=== PATIENT | female | born 1995 | race African-American/Black ===

== ENCOUNTER 2023-10-27 15:48 | Emergency (ER) | payer OTHER, SELFPAY ==
[2023-10-27 16:04] VITALS: BP 128/68; PULSE 80; RESP 16; TEMP 36.5; O2SAT 100
[2023-10-27 16:38] VITALS: PULSE 72; RESP 16; O2SAT 99
--- NOTE | 2023-10-27 16:38 | PC.NURSE ---
PT'S GRANDMOTHER CALLED STATING THAT SHE IS ON HER WAY TO GET PT AND THAT SHE IS LEAVING. WENT IN TO DISCUSS W PT AND SHE STATES HER RIDE IS HERE AND THAT SHE DID NOT WANT TO WAIT FOR PROVIDER OR AMA PAPERWORK. PT STATES SHE IS GOING TO [facility] ED.
--- NOTE | 2023-10-27 16:51 | ED.CHESTPAIN ---
HPI - Chest Pain General Chief Complaint: Chest Pain Stated Complaint: chest pain,tingling left hand,MARK Source: patient Mode of arrival: ambulatory Limitations: no limitations History of Present Illness HPI narrative: Patient presents for evaluation of chest pain that started at 1:00 p.m. today. She indicates she has had similar symptoms in the past for which she was seen at [facility]. She states that she was told that her symptoms were related distress. She reports an increase of stress as of late as result of health issues of a few family members as well as a few deaths in her family. She states pain is in the sternal region, described as tightness and rated 7/10 in severity. pain is intermittent but she cannot provide me with frequency with which she experiences the symptoms, duration of time in which she is symptomatic, aggravating or alleviating qualities. She had some SOB at the time of her chest pain onset, but that has resolved. She denies cough or leg swelling. She smokes marijuana but denies cigarette use. No leg swelling. No personal or family hx of DVT/PE. She is not on any estrogen-continaing products. Related Data Home Medications Medication Instructions Recorded Confirmed ferrous sulfate 325 mg (65 mg 325 mg PO DAILY 10/27/23 10/27/23 iron) tablet Allergies Allergy/AdvReac Type Severity Reaction Status Date / Time amoxicillin Allergy Rash Verified 10/27/23 16:07 Review of Systems Review of Systems: CONSTITUTIONAL: Denies fever, chills, or sweats. EYES: Denies visual changes, redness, or discharge. ENT: Denies rhinorrhea, congestion, sore throat, or otalgia. CARDIOVASCULAR: Reports intermittent chest pain today, none currently. Denies palpitations, or edema. RESPIRATORY: Reports shortness of breath earlier, now resolved. Denies cough GASTROINTESTINAL: Denies abdominal pain, nausea, vomiting, or diarrhea. GENITOURINARY: Denies dysuria or hematuria. SKIN: Denies rash or itching. MUSCULOSKELETAL: Denies back pain, joint pain, or myalgia. NEUROLOGIC: Denies headache, numbness, dizziness, or weakness. PSYCHIATRIC: Reports stress and anxiety. Denies depression, SI, HI. [facility] Past Medical History Medical History No pertinent past medical history Surgical History Surgical History No pertinent past surgical history Family History Family History Mother Family history non-contributory Social History Social History Smoking status: Never smoker Substance use: current Substance use type: marijuana Living arrangements: with family Additional living arrangements comments: lives with her daughter Gender identity (if verbalized by the patient): Female Sexual Orientation (if Verbalized by the Patient): Straight or Heterosexual Spiritual care concerns: No Exam Narrative: GENERAL: Well-appearing, well-nourished, and in no acute distress. HEAD: Normocephalic, atraumatic. EYES: PERRLA and EOMI. ENT: Nares clear, no rhinorrhea or epistaxis. Mucous membranes moist. Oropharynx without tonsillar hypertrophy exudate or other lesions. Bilateral TMs pearly valencia nonbulging NECK: Supple. No adenopathy or masses. No carotid bruits or JVD CHEST: Clear to auscultation. No respiratory distress. No wheezes rales or rhonchi HEART: Regular rate and rhythm. No murmur heard. Normal peripheral pulses. ABDOMEN: Soft, nontender, nondistended, normal active bowel sounds. EXTREMITIES: Normal range of motion. No edema. SKIN: Warm, dry, no rash. NEURO: No focal deficits. Alert and oriented x3. PSYCH: Normal mood and affect. Course Course Emergency Course: This is a 28-year-old female who presented for evaluation of chest pa
== END 2023-10-27 16:38 | disposition left against medical advice (07) ==
PROVIDERS: Emergency Provider Nurse Practitioner; PCP Internal Medicine
DX: R07.9 Chest pain, unspecified (principal); F12.90 Cannabis use, unspecified, uncomplicated
CPT/HCPCS: 99213; G0463

== ENCOUNTER 2024-01-13 18:49 | Emergency (ER) | payer OTHER, SELFPAY ==
--- NOTE | ~2024-01-13 | XR_ITS ---
EXAMINATION: XR foot RT min 3V DATE: 01/13/2024 19:53 INDICATION: Right foot injury and pain. TECHNIQUE: 3 views of right foot were obtained. COMPARISON: None. FINDINGS: There is an oblique fracture of diaphysis of third proximal phalanx. The distal fracture fr agment demonstrates 2 mm lateral displacement, shortening, and 20 degrees lateral angulation. 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 IMPRESSION: 1. Oblique fracture of diaphysis of third proximal phalanx. Reviewed, dictated and finalized at location E.
[2024-01-13 18:50] VITALS: BP 133/64; PULSE 96; RESP 16; TEMP 35.9; O2SAT 100
[2024-01-13] MEDS: HYDROcodone/acetaminophen (*CRX) 5-325 MG TABLET 1 TAB PO (20:25)
--- NOTE | 2024-01-13 20:32 | ED.GENADULT ---
HPI - General Adult General Chief complaint: Extremity Injury, Lower Stated complaint: R foot pain Time Seen by Provider: 01/13/24 19:40 History of Present Illness HPI narrative: 28-year-old female present to the emergency department for evaluation for persistent right foot pain. patient injured her foot yesterday. Patient was seen at [place] and diagnosed with a broken toe. Patient called the human resources vice president and they stated they were unable to provide pain medication for her until she was seen and she was instructed to present to the emergency department for evaluation. Patient's affected toe is johan-taped and patient does have a hard sole shoe. Related Data Home Medications Medication Instructions Recorded Confirmed ferrous sulfate 325 mg (65 mg 325 mg PO DAILY 10/27/23 10/27/23 iron) tablet Allergies Allergy/AdvReac Type Severity Reaction Status Date / Time amoxicillin Allergy Rash Verified 01/13/24 18:53 Review of Systems Review of Systems: All systems reviewed & are unremarkable except as noted in HPI and below PMFSH Past Medical History Medical History No pertinent past medical history Surgical History Surgical History No pertinent past surgical history Family History Family History Mother Family history non-contributory Social History Social History Smoking status: Never smoker Substance use: current Substance use type: marijuana Living arrangements: with family Additional living arrangements comments: lives with her daughter Gender identity (if verbalized by the patient): Female Sexual Orientation (if Verbalized by the Patient): Straight or Heterosexual Spiritual care concerns: No Exam Narrative: APPEARANCE: Well appearing, no pain, no distress, well-nourished. HEAD: normocephalic, atraumatic. EYES: PERRLA/EOMI, conjunctivae clear. NOSE: Normal no drainage EARS:TMS clear with good light reflex. THROAT: Pharynx clear, no exudate. NECK: Supple. No adenopathy, no masses. RESPIRATORY: Airway patent, respirations nonlabored. Clear to auscultation bilaterally, no rales, rhonchi, wheezing. CARDIOVASCULAR: Regular rate and rhythm without murmurs rubs or gallops. ABDOMINAL: Soft, nontender, nondistended, normal bowel sounds MUSCULOSKELETAL: Third toe pain NEURO: Alert. Cranial nerves II through XII intact. Good gait. Good coordination SKIN: Warm, dry. Normal Color Course Vital Signs Vital signs: Vital Signs Temperature 96.7 F L 01/13/24 18:50 Pulse Rate 96 01/13/24 18:50 Respiratory Rate 16 01/13/24 18:50 Blood Pressure 133/64 01/13/24 18:50 Pulse Oximetry 100 01/13/24 18:50 Oxygen Delivery Room Air 01/13/24 18:50 Temperature 96.7 F L 01/13/24 18:50 Pulse Rate 96 01/13/24 18:50 Respiratory Rate 16 01/13/24 18:50 Blood Pressure 133/64 01/13/24 18:50 Pulse Oximetry 100 01/13/24 18:50 Oxygen Delivery Room Air 01/13/24 18:50 Medical Decision Making MDM Narrative Medical decision making narrative: 28-year-old female presents emergency department for evaluation for toe pain. X-ray does show a proximal 3rd to phalanx fracture. Patient's toe is johan-taped. Patient does it hurt so she would patient was provided crutches for limited weight-bearing. Patient is also provided additional medications for pain control for home. Patient does have follow-up scheduled with Podiatry. All questions concerns were addressed. Vital Signs Vital Signs: Vital Signs Temperature 96.7 F L 01/13/24 18:50 Pulse Rate 96 01/13/24 18:50 Respiratory Rate 16 01/13/24 18:50 Blood Pressure 133/64 01/13/24 18:50 Pulse Oximetry 100 01/13/24 18:50 Oxygen Delivery Room Air 01/13/24 18:50
== END 2024-01-13 20:53 | disposition home or self-care (01) ==
PROVIDERS: Emergency Provider Emergency Medicine; PCP Internal Medicine
DX: S92.511A Displaced fracture of proximal phalanx of right lesser toe(s), initial encounter for closed fracture (principal); X58.XXXA Exposure to other specified factors, initial encounter
CPT/HCPCS: 73630; 99283; 99284; A9270